=== PATIENT | female | born 1995 | race Caucasian/White ===

== ENCOUNTER 2016-10-16 10:11 | Emergency (ER) | payer BC ==
[2016-10-16 10:25] VITALS: BP 120/74
--- NOTE | 2016-10-16 10:55 | UC ---
Skin Complaint HPI - HPI Summary HPI Summary: pain and swelling under right arm, tender to touch, no fluctuate center - History of Current Complaint Chief Complaint: UCUpperExtremity Time Seen by Provider: 10/16/16 10:38 Stated Complaint: LUMPS IN ARMPITS Hx Obtained From: Patient Hx Last Menstrual Period: 09/25/16 ?: No Onset/Duration: Sudden Onset, Lasting Days - 3, Still Present Onset Severity: Mild Current Severity: Mild Pain Intensity: 5 Pain Scale Used: 0-10 Numeric Location: Discrete - right axilla Character: Swelling, Pruritus, Pain, Raised Aggravating: Nothing Alleviating: Cold Compresses Associated Signs & Symptoms: Positive: Negative - Allergy/Home Medications Allergies/Adverse Reactions: Allergies Allergy/AdvReac Type Severity Reaction Status Date / Time No Known Allergies Allergy Verified 10/16/16 10:26 Review of Systems Constitutional: Negative Skin: Other - 1 cm abscess with out nerythema under right axilla Eyes: Negative ENT: Negative Respiratory: Negative Cardiovascular: Negative Gastrointestinal: Negative Genitourinary: Negative Motor: Negative Neurovascular: Negative Musculoskeletal: Negative Neurological: Negative Psychological: Negative All Other Systems Reviewed And Are Negative: Yes PMH/Surg Hx/FS Hx/Imm Hx Previously Healthy: Yes - Surgical History Surgical History: None - Family History Known Family History: Positive: Cardiac Disease - Social History Occupation: Student Lives: With Family Alcohol Use: Rare Alcohol Amount: 2 times a week Substance Use Type: None Smoking Status (MU): Never Smoked Tobacco - Immunization History Most Recent Influenza Vaccination: none Physical Exam Triage Information Reviewed: Yes Appearance: Well-Appearing, No Pain Distress, Well-Nourished Vital Signs: Initial Vital Signs Temp 99.2 F 10/16/16 10:20 Pulse 100 10/16/16 10:20 Resp 16 10/16/16 10:20 BP 120/74 10/16/16 10:20 Pulse Ox 99 10/16/16 10:20 Vital Signs Reviewed: Yes Eye Exam: Normal Eyes: Positive: Conjunctiva Clear ENT Exam: Normal ENT: Positive: Normal ENT inspection, Hearing grossly normal. Negative: Nasal congestion, Nasal drainage, Trismus, Muffled/hoarse voice Dental Exam: Normal Neck exam: Normal Neck: Positive: Supple, Nontender, No Lymphadenopathy Respiratory Exam: Normal Respiratory: Positive: Chest non-tender, No respiratory distress, No accessory muscle use Cardiovascular Exam: Normal Cardiovascular: Positive: No Murmur, Pulses Normal, Brisk Capillary Refill Musculoskeletal Exam: Normal Musculoskeletal: Positive: Strength Intact, ROM Intact, No Edema Neurological Exam: Normal Neurological: Positive: Alert, Muscle Tone Normal Psychological Exam: Normal Skin Exam: Normal Course/Dx - Course Course Of Treatment: heat, bactrim, ibuprofen, follow with [facility] return as needed - Differential Diagnoses - Skin Complaint Differential Diagnoses: Abscess, Cellulitis, Contact Dermatitis - Diagnoses Provider Diagnoses: Abscess right axilla Discharge - Discharge Plan Condition: Stable Disposition: HOME Prescriptions: Sulfamethox/Trimethoprim DS* [Bactrim DS 800/160 TAB*] 1 tab PO BID #20 tab Patient Education Materials: Abscess (ED), Heat Pack Application (ED) Referrals: [facility] [Outside] - 5 Days (or follow at [facility] or return as needed) No Primary Care Phys,NOPCP [Primary Care Provider] -
== END 2016-10-16 11:01 | disposition home or self-care (01) ==
LOC: UCCORT 10:11
DX: L02.411 Cutaneous abscess of right axilla (principal)
CPT/HCPCS: 99212; G0463